=== PATIENT | male | born 1985 | race Caucasian/White ===

== ENCOUNTER 2016-09-30 21:35 | Observation (INO) | payer SELFPAY ==
[2016-09-30] MEDS ORDERED: Sodium Chloride 0.9% 1,000 ML IV ONE (22:23)
--- NOTE | 2016-09-30 22:23 | C.PDOC ---
History Of Present Illness A 31 y/o M c/o worsening mid epigastric and periumbilical pain for the past 2 months. Pain to the periumblical area is described at sharp and stabbing that is 6/10. Pain has been worse over the last couple of hours. Reports some nausea , but denies vomiting, diarrhea, chest pain, SOB, constipation, fever, chills, palpitations, or any other complaints. Pt saw PMD who sent him here for evaluation. Time Seen by Provider: 09/30/16 22:23 Chief Complaint (Nursing): Abdominal Pain History Per: Patient History/Exam Limitations: no limitations Onset/Duration Of Symptoms: Days Current Symptoms Are (Timing): Still Present Severity: Moderate Pain Scale Rating Of: 6 Location Of Pain/Discomfort: Epigastric, Periumbilical Radiation Of Pain To:: None Quality Of Discomfort: Sharp, Stabbing Associated Symptoms: Nausea. denies: Fever, Chills, Vomiting, Diarrhea Exacerbating Factors: None Alleviating Factors: None Recent travel outside of the [place]: No Additional History Per: Patient Past Medical History Reviewed: Historical Data, Nursing Documentation, Vital Signs Vital Signs: Last Vital Signs Temp 97.9 F 09/30/16 22:10 Pulse 102 H 09/30/16 22:10 Resp 20 09/30/16 22:10 BP 129/87 09/30/16 22:10 Pulse Ox 97 09/30/16 23:40 Family History: States: Unknown Family Hx - Social History Hx Alcohol Use: Yes Hx Substance Use: No - Immunization History Hx Tetanus Toxoid Vaccination: No Hx Influenza Vaccination: Yes (2016) Hx Pneumococcal Vaccination: No Review Of Systems Constitutional: Negative for: Fever, Chills Eyes: Negative for: Redness Cardiovascular: Negative for: Chest Pain, Palpitations Respiratory: Negative for: Shortness of Breath Gastrointestinal: Positive for: Nausea, Abdominal Pain (Epigastric and periumbilical). Negative for: Vomiting, Diarrhea, Constipation Genitourinary: Negative for: Dysuria Musculoskeletal: Negative for: Back Pain Skin: Negative for: Rash, Lesions, Jaundice Neurological: Negative for: Weakness Psych: Negative for: Anxiety Physical Exam - Physical Exam Appears: Non-toxic Skin: Warm, Dry Head: Normacephalic Eye(s): bilateral: Normal Inspection Oral Mucosa: Moist Neck: Supple Chest: Symmetrical Cardiovascular: Rhythm Regular Respiratory: No Rales, No Rhonchi, No Wheezing Gastrointestinal/Abdominal: Soft, Tenderness (Periumbilical area), Guarding ( Voluntary guarding), No Rebound, Other (small umbilical hernia) Back: No CVA Tenderness Male Genital: No Inguinal Tenderness Extremity: No Tenderness Extremity: Bilateral: Atraumatic, Normal Color And Temperature Neurological/Psych: Oriented x3, Normal Speech, Normal Cognition Gait: Steady ED Course And Treatment - Laboratory Results Result Diagrams: 09/30/16 22:32 09/30/16 22:32 O2 Sat by Pulse Oximetry: 97 (RA) Pulse Ox Interpretation: Normal Disposition Discussed With : Joselyn Hooker Comment: accepted the pt on his service and took over the care at 12 :06 AM Counseled Patient/Family Regarding: Studies Performed, Diagnosis - Disposition Disposition: HOSPITALIZED Disposition Time: 22:23 Condition: FAIR - POA Present On Arrival: None - Clinical Impression Clinical Impression: Abdominal pain, Umbilical hernia - Scribe Statement The provider has reviewed the documentation as recorded by the Jerrodibanjum tom All medical record entries made by the Jerrodibanjum were at my direction and personally dictated by me. I have reviewed the chart and agree that the record accurately reflects my personal performance of the history, physical exam, medical decision making, and the department course for this patient. I have also personally directed, reviewed, and agree with the discharge instructions and disposition.
[2016-09-30] MEDS ORDERED: Morphine 4 MG/ML VIAL ONE (22:25)
[2016-09-30] MEDS ORDERED: Sodium Chloride 0.9% 1,000 ML ONE (22:29)
[2016-09-30] MEDS ORDERED: Iodixanol 320 MG/ML 100 ML BOTTLE IV ONE (22:29)
[2016-09-30 22:37] LABS: BASO # 0.1 K/uL (0.0-0.2); BASO % 0.6 % (0.0-2.0); EOS # 0.1 K/uL (0.0-0.7); EOS % 1.4 % (0.0-4.0); HEMATOCRIT 43.5 % (35.0-51.0); LYMPH # 3.1 K/uL (1.0-4.3); LYMPH % 33.4 % (20.0-40.0); MEAN CELL VOLUME 88.3 fL (80.0-94.0); MEAN CORPUSCULAR HEMOGLOBIN 30.2 pg (27.0-31.0); MEAN CORPUSCULAR HGB CONC 34.1 g/dL (33.0-37.0); MEAN PLATELET VOLUME 8.8 fL (7.2-11.7); MONO # 0.8 K/uL (0.0-0.8); MONO % 8.7 % (0.0-10.0); RED CELL DISTRIBUTION WIDTH 12.2 % (11.5-14.5); WHITE BLOOD COUNT 9.2 K/uL (4.8-10.8)
[2016-09-30 22:46] LABS: POTASSIUM 3.8 mmol/L (3.6-5.2); SODIUM 141 mmol/L (132-148)
[2016-09-30 22:49] LABS: ALB/GLOB RATIO 1.4 (1.0-2.1); ALKALINE PHOSPHATASE 39 U/L (38-126); ALT/SGPT 77 U/L (21-72); AST/SGOT 36 U/L (17-59); BILIRUBIN,TOTAL 0.6 mg/dL (0.2-1.3); BLOOD UREA NITROGEN 15 mg/dL (9-20); CALCIUM 9.5 mg/dl (8.6-10.4); CARBON DIOXIDE 27 mmol/L (22-30); GFR AFRICAN-AMERICAN > 60; GLUCOSE,RANDOM 83 mg/dL (75-110); TOTAL PROTEIN 7.9 g/dL (6.3-8.3)
[2016-09-30 22:52] LABS: RBC URINE 1 /hpf (0-3); URINE BILIRUBIN NEGATIVE (NEGATIVE); URINE BLOOD NEGATIVE (NEGATIVE); URINE COLOR Yellow (YELLOW); URINE GLUCOSE (UA) NORMAL (Normal); URINE KETONE NEGATIVE (NEGATIVE); URINE LEUKOCYTE ESTERASE NEG Leu/uL (Negative); URINE PROTEIN NEGATIVE (NEGATIVE); URINE UROBILINOGEN NORMAL mg/dL (0.2-1.0); WBC URINE 1 /hpf (0-5)
[2016-09-30 22:59] LABS: CHLORIDE 98 mmol/L (98-107)
--- NOTE | 2016-10-01 00:02 | CT ---
EXAM: CT Abdomen and Pelvis With Intravenous Contrast CLINICAL HISTORY: 31 years old, male; Pain; Abdominal pain; Additional info: Abd pain TECHNIQUE: Axial computed tomography images of the abdomen and pelvis with intravenous contrast. This CT exam was performed using one or more of the following dose reduction techniques: automated exposure control, adjustment of the mA and/or kV according to patient size, and/or use of iterative reconstruction technique. Coronal and sagittal reformatted images were created and reviewed. CONTRAST: 100 mL of [id number] administered intravenously. COMPARISON: No relevant prior studies available. FINDINGS: Limitations: Motion artifact - mild. Lower thorax: No acute findings. ABDOMEN: Liver: Unremarkable. No mass. Gallbladder and bile ducts: No calcified stones. No ductal dilation. Pancreas: No ductal dilation. No mass. Spleen: No splenomegaly. Adrenals: No mass. Kidneys and ureters: No mass. No hydronephrosis. Stomach and bowel: Fluid within small bowel. Apparent mild mural/fold thickening of few jejunal loops. No associated inflammatory stranding. No obstruction. Appendix: Normal caliber. No definite inflammation. PELVIS: Bladder: Unremarkable. Reproductive: Unremarkable as visualized. ABDOMEN and PELVIS: Intraperitoneal space: No significant fluid collection. No free air. Bones/joints: No acute fracture. Soft tissues: Small paraumbilical hernia containing fat. Vasculature: Unremarkable. No aneurysm. Lymph nodes: No pathologically enlarged lymph nodes. IMPRESSION: 1. Possible mild enteritis. Clinical correlation is needed. 2. Incidental/non-acute findings are described above.
--- NOTE | 2016-10-01 00:11 | CP.PCM.HP ---
History of Present Illness - History of Present Illness History of Present Illness: Chief complaint: Abdomen pain. History present illness: 31-year-old male with no past weekly history came to the office with a complaint of ongoing abdominal discomfort for almost to 6 months duration. Complaining of cough, and occasionally, also associate with the chest pain. Running nose noted sometimes. 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 Allergies no known drug allergy. Personal history occasionally smokes, drinks alcohol occasionally. Currently working in the kitchen Review of systems: No headache or visual symptoms no chest pain or shortness of breath. Family history noncontributory. Father had a history of diabetes, with he kidney disease, one brother with kidney disease. Mother is diabetes. On examination: HEENT PERRLA, neck supple No thyromegaly was noted and no cervical adenopathy noted Chest bilateral good air entry, no wheezing or rales noted CVS regular heart sound, no murmur Umbilical hernia is noted, incarcerated, tenderness present Extremities no pedal edema, no leg swelling, pedal pulses are good. FIREMAN alert awake oriented x3 no functional neurological deficit. Assessment and admission: 31-year-old male came to the office with a possible acute incarcerated ventral hernia, suggested a surgical intervention. Patient also has a possible asthma. Will follow the patient surgical eval ivf will f/u Present on Admission - Present on Admission Any Indicators Present on Admission: No History of DVT/PE: No History of Uncontrolled Diabetes: No Urinary Catheter: No Decubitus Ulcer Present: No Past Patient History - Past Social History Smoking Status: Light Smoker < 10 Cigarettes Daily - PSYCHIATRIC Hx Substance Use: No - SURGICAL HISTORY Hx Surgeries: No - ANESTHESIA Hx Anesthesia: No Meds Allergies/Adverse Reactions: Allergies Allergy/AdvReac Type Severity Reaction Status Date / Time No Known Allergies Allergy Verified 09/30/16 22:13 Results - Vital Signs Recent Vital Signs: Last Vital Signs Temp 97.9 F 09/30/16 22:10 Pulse 102 H 09/30/16 22:10 Resp 20 09/30/16 22:10 BP 129/87 09/30/16 22:10 Pulse Ox 97 10/01/16 00:06 - Labs Result Diagrams: 09/30/16 22:32 09/30/16 22:32 Labs: Laboratory Results - last 24 hr 09/30/16 09/30/16 09/30/16 22:32 22:32 22:32 WBC 9.2 RBC 4.92 Hgb 14.8 Hct 43.5 MCV 88.3 MCH 30.2 MCHC 34.1 RDW 12.2 Plt Count 256 MPV 8.8 Neut % (Auto) 55.9 Lymph % (Auto) 33.4 [place] % (Auto) 8.7 Eos % (Auto) 1.4 Baso % (Auto) 0.6 Neut # 5.1 Lymph # 3.1 [place] # 0.8 Eos # 0.1 Baso # 0.1 PT 10.6 INR 1.0 APTT 32 Sodium Potassium Chloride Carbon Dioxide Anion Gap BUN Creatinine Est GFR ( Amer) Est GFR (Non-Af Amer) Random Glucose Calcium Total Bilirubin AST ALT Alkaline Phosphatase Total Protein Albumin Globulin Albumin/Globulin Ratio Lipase Urine Color Yellow Urine Clarity Clear Urine pH 5.0 Ur Specific [place] 1.024 Urine Protein Negative Urine Glucose (UA) Normal Urine Ketones Negative Urine Blood Negative Urine Nitrate Negative Urine Bilirubin Negative Urine Urobilinogen Normal Ur Leukocyte Esterase Neg Urine WBC (Auto) 1 Urine RBC (Auto) 1 Blood Type Antibody Screen 09/30/16 09/30/16 22:32 22:32 WBC RBC Hgb Hct MCV MCH MCHC RDW Plt Count MPV Neut % (Auto) Lymph % (Auto) [place] % (Auto) Eos % (Auto) Baso % (Auto) Neut # Lymph # [place] # Eos # Baso # PT INR APTT Sodium 141 Potassium 3.8 Chloride 98 Carbon Dioxide 27 Anion Gap 20 BUN 15 Creatinine 0.9 Est GFR ( Amer) > 60 Est GFR (Non-Af Amer) > 60 Random Glucose 83 Calcium 9.5 Total Bilirubin 0.6 AST 36 ALT 77 H Alkaline Phosphatase 39 Total Protein 7.9 Albumin 4.6 Globulin 3.3 Albumin/Globulin Ratio 1.4 Lipase 120 Urine Color Urine Clarity Urine pH Ur Specific [place] Urine Protein Urine Glucose (UA) Urine Ketones Urine Blood Urine Nitrate Urine Bilirubin Urine Urobilinogen Ur Leukocyte Esterase Urine WBC (Auto) Urine RBC (Auto) Blood Type A POSITIVE Antibody Screen Negative
[2016-10-01] MEDS ORDERED: Lactated Ringer's 1,000 ML IV SCH (00:15)
--- NOTE | 2016-10-01 05:58 | CP.PCM.CON ---
<Gena Choi - Last Filed: 10/01/16 07:05> History of Present Illness - History of Present Illness History of Present Illness: General surgery H & P for Dr Juan Alberto Choi, PGY-1 Pt S & E at bedside. 31 yo Tamil speaking M w/no sig PMH consulted for incarcerated umbiliical hernia. Pt reports umbilical hernia x last few months with occasional intermittent periumblical and RUQ pain. Pain is severe when present, non radiating, unable to describe. No alleviating factors identified, aggravated by picking up heavy objects. Admits to SOB with pain, chills, recent cough (non productive), constipation, passing flatus. Denies N/V/F, diarrhea, dysuria, chest pain, COOPER, sore throat, dysuria, changes in urinary habits, hematuria, hematochezia, hematemesis, numbess or tingling of extremities, weakness. PMH: Denies PSH: Denies All: Denies SH: Admits to tobacco use- few cigarettes daily, decreased from previous; admits to 1-2 ETOH drinks per mo, decreased from previous, lives with close family friend PMD: Nhung Review of Systems - Review of Systems All systems: reviewed and no additional remarkable complaints except - Constitutional Constitutional: Chills. absent: Fever - EENT Eyes: absent: Change in Vision Nose/Mouth/Throat: absent: Sore Throat - Cardiovascular Cardiovascular: absent: Chest Pain - Respiratory Respiratory: Cough - Gastrointestinal Gastrointestinal: Abdominal Pain, Constipation. absent: Hematemesis, Hematochezia, Nausea, Vomiting - Genitourinary Genitourinary: absent: Change in Urinary Stream, Dysuria - Musculoskeletal Musculoskeletal: absent: Muscle Weakness, Numbness, Tingling - Neurological Neurological: absent: Dizziness, Headaches Past Patient History - Past Social History Smoking Status: Light Smoker < 10 Cigarettes Daily - PSYCHIATRIC Hx Substance Use: No - SURGICAL HISTORY Hx Surgeries: No - ANESTHESIA Hx Anesthesia: No Meds Allergies/Adverse Reactions: Allergies Allergy/AdvReac Type Severity Reaction Status Date / Time No Known Allergies Allergy Verified 09/30/16 22:13 - Medications Medications: Current Medications Lactated Ringer's (Lactated Ringer's) 1,000 mls @ 100 mls/hr IV .Q10H JOSE Last Admin: 10/01/16 00:20 Dose: 100 mls/hr Physical Exam - Constitutional Appears: Non-toxic, No Acute Distress - Head Exam Head Exam: ATRAUMATIC, NORMAL INSPECTION, NORMOCEPHALIC - Eye Exam Eye Exam: EOMI, Normal appearance - ENT Exam ENT Exam: Mucous Membranes Moist, Normal Exam - Neck Exam Neck exam: Positive for: Full Rom, Normal Inspection - Respiratory Exam Respiratory Exam: Clear to Auscultation Bilateral, NORMAL BREATHING PATTERN - Cardiovascular Exam Cardiovascular Exam: REGULAR RHYTHM, +S1 - GI/Abdominal Exam GI & Abdominal Exam: Hernia (umbilical, non reducible), Normal Bowel Sounds, Soft, Tenderness (over umbilical hernia). absent: Distended, Firm, Guarding, Rebound, Rigid - Extremities Exam Extremities exam: Positive for: normal inspection. Negative for: pedal edema - Neurological Exam Neurological exam: Alert, CN II-XII Intact, Oriented x3 - Psychiatric Exam Psychiatric exam: Normal Affect, Normal Mood - Skin Skin Exam: Dry, Intact, Normal Color, Warm Results - Vital Signs Recent Vital Signs: Last Vital Signs Temp 97.9 F 09/30/16 22:10 Pulse 102 H 09/30/16 22:10 Resp 20 09/30/16 22:10 BP 129/87 09/30/16 22:10 Pulse Ox 97 10/01/16 00:06 - Labs Result Diagrams: 09/30/16 22:32 09/30/16 22:32 Assessment & Plan - Assessment and Plan (Free Text) Assessment: 31M w/umbilical hernia, possibly incarcerated Plan: Plan for OR today NPO LR@100 Pain regimen IVF Anti-emetic SCDs Pepcid Activity as benoit/ambulate Consent in chart Further recs as per Dr.Brahmbhatt KIMBROUGH attending Steph, PGY-1 - Date & Time Date: 10/01/16 Time: 05:57 <Gonzales Franks - Last Filed: 10/01/16 19:22> Results - Vital Signs Recent Vital Signs: Last Vital Signs Temp 97.8 F 10/01/16 16:00 Pulse 91 H 10/01/16 16:00 Resp 20 10/01/16 16:00 BP 124/69 10/01/16 16:00 Pulse Ox 99 10/01/16 16:00 - Labs Result Diagrams: 09/30/16 22:32 09/30/16 22:32 Attending/Attestation - Attestation I have personally seen and examined this patient.: Yes I have fully participated in the care of the patient.: Yes I have reviewed all pertinent clinical information: Yes Notes (Text): 10/01/16 19:20 Pt was seen and examined at bedside on 10/01/16 Agree with above note and assessment Pt has Incarcerated Umbilical hernia with severe abdominal pain OR for Lap umbilical hernia repair with mesh Consent NPO, IVF Plan d.w pt in detail Risk and benefit explained in detail
[2016-10-01] MEDS ORDERED: Morphine 4 MG/ML VIAL IVP PRN ×2 (06:47→08:05)
[2016-10-01] MEDS ORDERED: Lidocaine 1% Inj (20ml) ONE (12:40)
[2016-10-01] MEDS ORDERED: ceFAZolin IV 2 gm in Dextrose 1 GM/50 ML BAG IVPB ONE (12:48)
[2016-10-01] MEDS ORDERED: Lactated Ringer's 1,000 ML IV ONE ×3 (12:50→15:45)
[2016-10-01] MEDS ORDERED: Midazolam 2 MG/2 ML VIAL ONE (12:51)
[2016-10-01] MEDS ORDERED: Propofol 10 mg/ml Inj (20 ML) ONE (12:52)
[2016-10-01] MEDS ORDERED: Bupivacaine-Epi 0.25%-1:200,000 PF Inj ONE (13:46)
[2016-10-01] MEDS ORDERED: Neostigmine Methylsulfate 3mg/3ml Syringe IV ONE (14:03)
[2016-10-01] MEDS ORDERED: Oxycodone/Acetaminophen 5/325 mg Tab PO PRN ×2 (14:36)
[2016-10-01] MEDS: HYDROmorphone 0.5 mg/0.5 ml ISec IVP PRN ×3 (15:19→15:49)
[2016-10-01 17:06] VITALS: BP 124/69; PULSE 91; RESP 20; TEMP 97.8; O2SAT 99
--- NOTE | 2016-10-02 02:45 | OP ---
PROCEDURE DATE: 10/01/2016 PREOPERATIVE DIAGNOSIS: Incarcerated umbilical hernia. POSTOPERATIVE DIAGNOSIS: Incarcerated umbilical hernia. PROCEDURE DONE: Laparoscopic incarcerated umbilical hernia repair with mesh. SURGEON: Dr. Franks. STREETCAR STARTER: KYLIE Kennedy and Luba Estrella, PGY-1 resident. TYPE OF ANESTHESIA: General endotracheal tube anesthesia. ESTIMATED BLOOD LOSS: Around 10 mL. DRAINS: None. PATHOLOGY: Hernial sac and content was sent to the pathology. COMPLICATIONS: None. INTRAOPERATIVE FINDINGS: The patient had incarcerated omentum in the umbilical hernial defect and the patient had approximately 2 x 2 cm umbilical hernia. DESCRIPTION OF PROCEDURE: On intraoperative steps, this is a 31-year-old male who was diagnosed with incarcerated hernia and the patient was consented for laparoscopic umbilical hernia repair with a mesh was brought to the OR, placed supine on operating table. After induction of the anesthesia, abdomen was prepped and draped in a usual sterile fashion and left upper quadrant incision was made using the Visiport technique. Peritoneal cavity was entered and pneumoperitoneum was created and another two 8 mm and 5 mm port was placed in left flank and left lower quadrant and grasper and dissector was introduced and first hernial content was reduced and hernial sac was dissected and was sent off the table for the pathology and now the hernial defect was closed with a transfascial # 2 Ethibond sutures and a 9 cm circular mesh was introduced and implanted with Tacker and the transfascial incision wound was also closed in 2 layers, subcutaneous with 3-0 Vicryl and skin with 4-0 Monocryl and dry sterile dressing was applied. All the instruments were taken out under vision, pneumo was deflated and all the port sites were closed in 1 layer with 4-0 Monocryl and dry sterile dressing was applied. The patient tolerated the procedure well. Count of instrument was correct. There was no apparent complications. Gonzales Franks MD
== END 2016-10-01 18:41 | disposition home or self-care (01) ==
LOC: C.ER 21:35 → C.9E 10-01 00:05 → C.5T 10-01 00:50
PROVIDERS: ADMIT Internal Medicine; ATTEND Internal Medicine
DX: K42.0 Umbilical hernia with obstruction, without gangrene (principal); F17.210 Nicotine dependence, cigarettes, uncomplicated
CPT/HCPCS: 49653; 74177; 80053; 81001; 83690; 85025; 85610; 85730; 86850; 86900; 88302; 96361; 96374; 96375; 96376; 99283; C1781; G0378; J0690; J1100; J1170; J2001; J2250; J2270; J2405; J2704; J2710; J3010; J7040; J7120; Q9967